=== PATIENT | male | born 1990 | race African-American/Black ===

== ENCOUNTER 2016-10-04 18:22 | Emergency (ER) | payer OTHER ==
[~2016-10-04] VITALS: Ht 165.1 cm; Wt 61.2 kg
[~2016-10-04 18:22] MED LIST: IBUPROFEN800 M1 PO; PREDNISONE50 M1 PO
--- NOTE | 2016-10-04 18:49 | ED CARDIAC/CP/PALPITATIONS ---
History of Present Illness General Chief Complaint: General Adult Stated Complaint: DENTAL PAIN AND CHEST PAIN Source: patient Exam Limitations: no limitations Vital Signs & Intake/Output Vital Signs & Intake/Output Vital Signs Date Time Temp Pulse Resp B/P B/P Pulse O2 O2 Flow FiO2 Mean Ox Delivery Rate 10/04 2025 98.9 65 18 135/89 100 Room Air 10/04 1909 Room Air 10/04 1833 98.1 61 20 137/70 97 Room Air Allergies Coded Allergies: No Known Allergies (04/03/16) Reconcile Medications Amoxicillin 875 MG TABLET 1 TAB PO BID INFECTION Ibuprofen 800 MG TABLET 1 TAB PO TID PAIN Ibuprofen 800 MG TABLET 1 TAB PO TID pain Prednisone 50 MG TABLET 1 TAB PO DAILY throat pain Triage Note: PT TO ED C/O LEFT SIDED C/P X A FEW MONTHS. ALSO C/O DENTAL PAIN, "I HAD A HOLE IN MY TOOTH". HAS NOT SEEN PCP OR DENTIST. EKG DONE. PT TO ROOM 7, AWAITING PROVIDER EVAL. NO SOB OR DIFF BREATHING NOTED. VSS. Triage Nurses Notes Reviewed? yes Onset: Gradual Duration: waxing and waning (few months) Timing: multiple episodes today Location: central Activities at Onset: none Aspirin Today: no aspirin today HPI: 25 year old male with no significant past medical history who prsents with left sided chest pain on/off for the last several months but constant x 2 days. It is sharp and does not radiate. Worse with deep inspiration. She also complains of dental pain and states that he has a hole in his tooth and has not followed up with a dentist in a long time. Past History Travel History Traveled to [place] past 21 day No Medical History Any Pertinent Medical History? see below for history Neurological: NONE EENT: NONE Cardiovascular: NONE Respiratory: NONE Gastrointestinal: NONE Hepatic: NONE Renal: NONE Musculoskeletal: NONE Psychiatric: NONE Endocrine: NONE Blood Disorders: NONE Cancer(s): NONE EXTERN/Reproductive: NONE Surgical History Surgical History: none Psychosocial History What is your primary language [place] Tobacco Use: Current Daily Use Daily Tobacco Use Amount/Type: => 5 Cigarettes daily ETOH Use: denies use Illicit Drug Use: marijuana Family History Hx Contributory? No Review of Systems Review of Systems Constitutional: Denies: chills, fever. EENTM: Reports: mouth pain, tooth pain. Respiratory: Denies: cough, short of breath. Cardiovascular: Reports: chest pain. Denies: palpitations. GI: Denies: abdominal pain. Genitourinary: Denies: discharge, dysuria, frequency, hematuria. Musculoskeletal: Denies: back pain. Skin: Reports: no symptoms. Neurological/Psychological: Reports: no symptoms. Hematologic/Endocrine: Denies: bruising, bleeding, polyuria, polydipsia. Immunologic/Allergic: Denies: splenectomy. All Other Systems: Reviewed and Negative Physical Exam Physical Exam General Appearance: alert, awake, mild distress, thin Head: atraumatic, normal appearance Eyes: Bilateral: normal appearance, PERRL, EOMI. Ears, Nose, Throat: normal pharynx, normal ENT inspection, hearing grossly normal Neck: normal inspection, supple, full range of motion Respiratory: normal breath sounds, chest non-tender, quiet respiration Cardiovascular: regular rate/rhythm, NO MURMUR Peripheral Pulses: 2+ radial (R), 2+ radial (L) Gastrointestinal: soft, non-tender Extremities: normal inspection, normal capillary refill, normal range of motion, no edema Neurologic/Psych: no motor/sensory deficits, awake, alert, oriented x 3 Skin: intact, normal color, warm/dry Core Measures ACS in differential dx? Yes ASA ordered for poss ACS? No-ACS ruled out Severe Sepsis Present: No Septic Shock Present: No Progress Differential Diagnosis: AMI, aortic dissection, costochondritis, musculoskeletal pain, myocarditis, pericarditis, pneumonia, pneumothorax, pulmonary embolism, unstable angina Plan of Care: Orders Procedure Date/time Status TROPONIN LEVEL 10/05 1847 Complete D-DIMER 10/05 1847 Complete COMPREHENSIVE METABOLIC PANEL 10/04 184 Complete CBC WITHOUT DIFFERENTIAL 10/05 1847 Complete EKG 10/04 1823 Active Laboratory Tests 10/04/16 1912: Anion Gap 9, Estimated GFR > 60, BUN/Creatinine Ratio 13.3, Glucose 81, Calcium 9.6, Total Bilirubin 0.7, AST 73 H, ALT 45, Alkaline Phosphatase 61, Troponin I < 0.01, Total Protein 6.8, Albumin 4.1, Globulin 2.7, Albumin/Globulin Ratio 1.5 , D-Dimer < 200, CBC w Diff NO MAN DIFF REQ, RBC 4.09 L, MCV 96.2 H, MCH 32.3 H, RDW 12.2, MPV 9.6, Gran % 63.4, Lymphocytes % 25.6, Monocytes % 9.3, Eosinophils % 0.9, Basophils % 0.8, Absolute Granulocytes 5.1, Absolute Lymphocytes 2.0, Absolute Monocytes 0.7 H, Absolute Eosinophils 0.1, Absolute Basophils 0.1, PUBS MCHC 33.5 Diagnostic Imaging: Viewed by Me: Radiology Read. Discussed w/RAD: Radiology Read. CXR Impression: PATIENT: EDWIN ORTEGA PRESENT AGE: 25 PATIENT ACCOUNT NO: [id number] : 90 LOCATION: [facility] ORDERING PHYSICIAN: EILEEN GRUBER MD SERVICE DATE: 10/04/16 EXAM TYPE: RAD - XRY-CHEST XRAY , PA AND LATERAL EXAMINATION: XR CHEST CLINICAL INFORMATION: Chest pain. Evaluate for pneumothorax. COMPARISON: None. TECHNIQUE: 2 views of the chest were obtained. FINDINGS: The lungs are well-expanded and clear without focal airspace consolidation. No pleural effusions or pneumothoraces are identified. Cardiomediastinal contours are within normal limits. Soft tissues are unremarkable. No acute osseous abnormality is identified. IMPRESSION: No acute pulmonary process. No pneumothorax. 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 < Electronically signed in Other Vendor System> SIGNED BY: MARGARET LORENZO MD 10/04/161939 Initial ED EKG: NSR, early repol Departure Departure Disposition: HOME OR SELF CARE Condition: Stable Clinical Impression Primary Impression: Pleurisy Secondary Impressions: Infected dental carries Referrals: PATIENT HAS NO PRIMARY CARE DR (PCP/Family) Additional Instructions: TAKE THE IBUPROFEN AND AMOXICILLIN DIRECTED. FOLLOW UP WITH YOUR DENTIST OR WITH THE LIST OF DENTAL CLINICS. RETURN NEEDED. Departure Forms: Customer Survey General Discharge Information Prescriptions: Current Visit Scripts Ibuprofen 1 TAB PO TID #30 TAB Amoxicillin 1 TAB PO BID #20 TAB Critical Care Note Critical Care Note Critical Care Time: non-applicable
[2016-10-04 19:27] LABS: ABSOLUTE BASOPHIL COUNT 0.1 /CUMM (0.0-0.2); ABSOLUTE EOSINOPHIL COUNT 0.1 /CUMM (0.0-0.7); ABSOLUTE GRANULOCYTE CT 5.1 /CUMM (1.4-6.5); ABSOLUTE MONOCYTE COUNT 0.7 /CUMM (0.10-0.60); BASOPHIL % 0.8 % (0.0-2.0); EOSINOPHIL % 0.9 % (0-5); GRANULOCYTE % 63.4 % (42.2-75.2); HEMATOCRIT 39.3 % (42-52); MEAN CORPUSCULAR HGB 32.3 PG (27.0-31.0); MEAN CORPUSCULAR HGB CONC 33.5 G/DL (33.0-37.0); MEAN CORPUSCULAR VOLUME 96.2 FL (80.0-94.0); MEAN PLATELET VOLUME 9.6 FL (7.4-10.4); PLATELET COUNT 146 /CUMM (130-400); RBC DISTRIBUTION WIDTH 12.2 % (11.5-14.5); RED BLOOD CELL CT 4.09 /CUMM (4.70-6.10)
--- NOTE | 2016-10-04 19:40 | RADIOLOGY REPORT ---
EXAMINATION: XR CHEST CLINICAL INFORMATION: Chest pain. Evaluate for pneumothorax. COMPARISON: None. TECHNIQUE: 2 views of the chest were obtained. FINDINGS: The lungs are well-expanded and clear without focal airspace consolidation. No pleural effusions or pneumothoraces are identified. Cardiomediastinal contours are within normal limits. Soft tissues are unremarkable. No acute osseous abnormality is identified. IMPRESSION: No acute pulmonary process. No pneumothorax.
[2016-10-04] MEDS ORDERED: IBUPROFEN800 M1 PO (20:18)
[2016-10-04] MEDS ORDERED: AMOXICILLIN875 M1 PO (20:18)
[2016-10-04 20:26] VITALS: BP 135/89
== END 2016-10-04 20:55 ==
LOC: ERH 18:22
PROVIDERS: Emergency Medicine
DX: R09.1 Pleurisy (principal); K02.9 Dental caries, unspecified; R07.9 Chest pain, unspecified
CPT/HCPCS: 93005; 93010; 96372; J1885